=== PATIENT | female | born 1950 | race Caucasian/White ===

== ENCOUNTER 2019-08-11 10:32 | Emergency (ER) | payer MEDICARE, OTHER, SELFPAY ==
[2019-08-11 10:33] VITALS: BP 186/85; PULSE 74; RESP 33; TEMP 37.3; O2SAT 95; BMI 39.3
--- NOTE | 2019-08-11 11:04 | EKG12_ITS ---
Test Reason : CP Blood Pressure : / mmHG Vent. Rate : 069 BPM Atrial Rate : 069 BPM P-R Int : 190 ms QRS Dur : 150 ms QT Int : 436 ms P-R-T Axes : 052 -08 165 degrees QTc Int : 467 ms Normal sinus rhythm Left bundle branch block Abnormal ECG Confirmed by FINA ZAPATA, KORINA ([id number]), editor book TARA DANIELS ([id number]) on 08/16/2019 9:41:28 A M Referred By: WILLY/JAGUAR Confirmed By:DAVID HARDEN MD
[2019-08-11 11:21] LABS: Absolute Neutrophil Count 2.3 X10^3/uL (2.0-7.7); Basophil# 0.02 X10^3/uL; Basophil% 0.5 % (0-1); Eosinophil# 0.17 X10^3/uL; Eosinophils% 4.6 % (0-5); Hematocrit 38.8 % (37-47); Hemoglobin 12.6 g/dL (12.0-15.0); Lymphocyte % 21.5 % (19-41); Mean Corp Hgb Conc 32.5 g/dL (32-36); Mean Corpuscular Hgb 29.6 pg (27.0-32.0); Mean Corpuscular Volume 91.3 fL (81-99); Mean Platelet Vol. 9.6 fl (6.2-12.0); Monocyte# 0.42 X10^3/uL; Monocyte% 11.3 % (0-10); NRBC Flagged by Analyzer 0 % (0-5); Neutrophil # 2.29 X10^3/uL (2.7-7.7); Neutrophil % 61.6 % (47-70); Platelet Count 191 K/mm3 (150-450); RBC Distribution Width CV 14.1 % (11.6-14.6); RBC Distribution Width SD 47.3 fl (35.1-43.9); Red Blood Count 4.25 M/mm3 (4.2-5.4); White Blood Count 3.7 K/mm3 (4.4-11.0)
[2019-08-11 11:30] LABS: International Normalized Ratio 1.8
[2019-08-11 11:35] LABS: Anion Gap 6 (5-15); BUN 16 mg/dL (7-18); BUN/Creat Ratio 11.9 RATIO (10-20); Calcium,Total 9.1 mg/dL (8.5-10.1); Chloride 107 mmol/L (98-107); Creatinine, Serum 1.35 mg/dL (0.55-1.02); EST Glomerular Filtration Rate 42 mL/min (>60); Est Glom Filt Rate - Afr Amer 50 mL/min (>60); Estimated Creatinine Clearance 31.98 ml/min; Glucose 101 mg/dL (74-106); Potassium 4.2 mmol/L (3.5-5.1); Sodium Level 142 mmol/L (136-145)
[2019-08-11] MEDS: Aspirin 81 MG TAB.CHEW 324 MG PO (11:57)
[2019-08-11] MEDS: 0.9% Normal Saline 1,000 ML 150 ML IV (11:59)
[2019-08-11 12:00] VITALS: BP 161/75; PULSE 72; RESP 20; O2SAT 95
[2019-08-11 12:01] VITALS: O2SAT 95
--- NOTE | 2019-08-11 13:01 | NM_ITS ---
CLINICAL: Female, 68 years old. Short of breath NUCLEAR VENTILATION/PERFUSION - LUNG TECHNIQUE: The patient was administered 5.6 mCi of Tc MAA followed by a perfusion lung scan. The patient was administered 1.2 mCi of DTPA followed by a ventilation lung scan. Comparison made to prior chest radiograph dated 08/11/2019. FINDINGS: The pulmonary perfusion study demonstrates uniform perfusion throughout both lung patterson. There are no demonstrated segmental or subsegmental perfusion defects The ventilation study demonstrates uniform ventilation throughout both lung patterson. There are no segmental or subsegmental ventilation abnormalities. NM/Lung Scan Vent/Perf IMPRESSION: Normal 99m Tc MAA pulmonary perfusion and ventilation imaging survey, according to revised PIOPED interpretive criteria. Electronically Signed: Denis Nava, at 15:04 EDT Tel , Service support ,
--- NOTE | 2019-08-11 13:02 | VDLE_ITS ---
Reason For Study: SOB RIGHT LEFT GSV is normal. GSV is normal. CFV is compressible, spontaneous, phasic, CFV is compressible, spontaneous, phasic, competent and demonstrates normal competent, and demonstrates normal augmentation. augmentation. FV is compressible, spontaneous, phasic, FV is compressible, spontaneous, phasic, competent and demonstrates normal competent and demonstrates normal augmentation. augmentation. POP V is compressible, spontaneous, phasic, POP V is compressible, spontaneous, phasic, competent and demonstrates normal competent and demonstrates normal augmentation. augmentation. T/P Trunk is compressible. T/P Trunk is compressible. PTV is compressible. PTV is compressible. RT PerV is compressible. LT PerV is compressible. Procedure Exam performed portable in ED. The exam was diagnostic. A preliminary report was called and/or faxed to PT'S RN & ED. Interpretation Summary No evidence for acute deep venous thrombosis bilateral lower extremities with patent and compressible bilateral great saphenous veins. Ordering Physician: Rigoberto Reyna Referring Physician: April Rincon Performed By: Nicol Ford, DOUGIE, RVT
--- NOTE | 2019-08-11 13:05 | RAD_ITS ---
EXAM DESCRIPTION: PORTABLE AP CHEST CLINICAL HISTORY: 68 years Female, shortness of breath COMPARISON: Previous portable chest obtained on 09/23/2016 FINDINGS: The thorax is intact. The heart and mediastinum appear to be within normal limits. The lungs appear to be well areated without evidence of pneumonic consolidation or pleural effusion. RAD/Chest 1 View (Portable) IMPRESSION: Normal portable chest. Electronically Signed: Denis Nava, at 14:55 EDT Tel , Service support ,
[2019-08-11 13:12] VITALS: BP 158/70; PULSE 70; RESP 14; O2SAT 98
[2019-08-11 14:13] VITALS: BP 148/80; PULSE 75; RESP 14; O2SAT 98
--- NOTE | 2019-08-11 15:31 | ED.DCSUM_ITS ---
- ER Visit Summary Date of Service: 08/11/19 Chief Complaint: Chest pain History of Present Illness: The patient is a [address] Rincon. She reports that she has left lower chest pain that began yesterday afternoon. Is a continuous pain. She reports that it was sharp yesterday and dull today. S tated 10 hours and 4-10 currently. Is worsened by breathing or pushing on it. Is relieved by nothing. She denies any associated nausea, vomiting, diaphoresis, shortness of breath. She reports that she had similar symptoms with a PE in a while. Ago. She is on Coumadin. She reports her last INR was proximally 1 month ago and it was 2.9. Physical Examination: Vitals: Stable. Afebrile. General: Well-nourished and well-developed. Head: Normocephalic atraumatic. Neck: Supple, no lymphadenopathy. No JVD. Nontender. Cardiovascular: Regular rate and rhythm. No murmurs. Respiratory: No respiratory distress. Clear to auscultation bilaterally. No tenderness palpation. There is no rest of her chest to suggest shingles. Abdominal: Soft, nontender, nondistended, normal bowel sounds. No guarding, rebound, or peritoneal signs. Back: Nontender. Extremities: Nontender, no edema. Skin: Normal color, no rash. Neurologic: Alert and oriented ?3. Cranial nerves II through XII are intact. Normal strength and sensation. Psych: Normal affect. Test Results: EKG is sinus at 69 with a left bundle branch block. Unchanged from 2016. Troponin is negative despite greater than 24 hours of constant pain. INR is 1.8. Chem-7 is more for creatinine 1.35. CBC is marked for white count 3.7. Bilateral lower extremity Dopplers negative. Chest x-ray is normal. VQ scan is normal. Emergency Department Course and Treatment: Patient refused a CT of the chest. She also refused pain medications. She is resting comfortably. Treatment Plan: Patient will be discharged instructions follow-up with his primary care physician 1 to 2 days if not improving. I did discuss with her the possibility that this may be shingles prior to the onset of the rash. Return to the emergency department for any worsening symptoms. Disposition: To home in improved and stable condition. Impression: 1. Atypical chest pain. This note was generated with Dragon dictation software. It may contain incorrect words, spelling, and punctuation that were not noted in review of the chart prior to signing ED Disposition - Plan for ED Patient: Disposition: Home or Assisted Living Instructions: CHEST PAIN, Uncertain Cause Referrals: April Rincon MD [Primary Care Provider] - 2 Days
[2019-08-11 15:39] VITALS: BP 150/75; PULSE 70; RESP 14; O2SAT 98
== END 2019-08-11 15:41 | disposition home or self-care (01) ==
LOC: ED 12:10
PROVIDERS: Emergency Provider Emergency Medicine; Family Provider Internal Medicine; PCP Internal Medicine
DX: R07.89 Other chest pain (principal); I44.7 Left bundle-branch block, unspecified; I10 Essential (primary) hypertension; E78.00 Pure hypercholesterolemia, unspecified; L40.9 Psoriasis, unspecified; Z85.42 Personal history of malignant neoplasm of other parts of uterus; Z92.21 Personal history of antineoplastic chemotherapy; Z92.3 Personal history of irradiation; Z86.711 Personal history of pulmonary embolism; Z79.01 Long term (current) use of anticoagulants; Z79.82 Long term (current) use of aspirin; Z79.899 Other long term (current) drug therapy
CPT/HCPCS: 71045; 78582; 80048; 84484; 85025; 85379; 85610; 93005; 93970; 96360; 96361; 99285; A9540; A9567; J7030; A4216

== ENCOUNTER → 2020-09-09 | Outpatient (CLI) | payer MEDICARE, OTHER, SELFPAY ==
[2020-09-09 15:49] LABS: International Normalized Ratio 1.8; Prothrombin Time (Protime)PT. 20.2 SECONDS (11.7-14.9)
== END | disposition home or self-care (01) ==
LOC: LABSPEC 15:10
PROVIDERS: PCP Internal Medicine; Referring Provider Internal Medicine Hematology & Oncology; Visit Provider Internal Medicine Hematology & Oncology
DX: Z86.718 Personal history of other venous thrombosis and embolism (principal)
CPT/HCPCS: 85610

== ENCOUNTER → 2022-05-27 | Outpatient (CLI) | payer MEDICARE, OTHER, SELFPAY ==
[2022-05-27 12:30] LABS: International Normalized Ratio 2.3; Prothrombin Time (Protime)PT. 25.3 SECONDS (11.7-14.9)
== END | disposition home or self-care (01) ==
LOC: LABSPEC 12:04
PROVIDERS: PCP Internal Medicine; Visit Provider Internal Medicine Hematology & Oncology
DX: I82.5Y9 Chronic embolism and thrombosis of unspecified deep veins of unspecified proximal lower extremity (principal)
CPT/HCPCS: 85610

== ENCOUNTER 2023-07-19 12:26 | Emergency (ER) | payer MEDICARE, OTHER, SELFPAY ==
[2023-07-19 12:27] VITALS: BP 171/86; PULSE 61; RESP 18; TEMP 36.1; O2SAT 97; BMI 37.4
--- NOTE | 2023-07-19 12:38 | VDLE_ITS ---
Reason For Study: Right leg pain RIGHT GSV is normal. CFV is compressible, spontaneous, phasic, competent and demonstrates normal augmentation. FV is compressible, spontaneous, phasic, competent and demonstrates normal augmentation. POP V is compressible, spontaneous, phasic, competent and demonstrates normal augmentation. T/P Trunk is compressible. PTV is compressible. RT PerV is compressible. Vascularized lymph node noted in the right groin that measures 0.95 x 3.20 cm. Procedure This is a venous duplex using B-mode, color flow and spectral Doppler. Exam performed portable in ED. A preliminary report was called and/or faxed to Jenni BRIDGES and Dr. Benjamin. VL/Venous Duplex US, Unilateral Interpretation Summary Deep veins of the right lower extremity are patent and compressible segmentally . There is no evidence of right lower extremity deep vein thrombosis. The right great sapheno us vein appears patent and compressible segmentally. Vascularized right inguinal lymph node noted that measures 0.95 x 3.20 cm. Ordering Physician: Lilian Saab Referring Physician: April Rincon M.D. Performed By: Rama Delarosa RVT
--- NOTE | 2023-07-19 12:48 | EDS_ITS ---
HPI History of Present Illness Chief Complaint: General Illness PFSH PFS Home Medications betamethasone dipropionate 0.05 % topical cream 15 g TP BID 09/23/16 [History Last Taken Unknown] famotidine 40 mg tablet (Pepcid) 40 mg PO DAILY 09/23/16 [History Last Taken Unknown] nystatin 100,000 unit/gram topical ointment 1 applic topical BID 09/23/16 [History Last Taken Unknown] valsartan 80 mg-hydrochlorothiazide 12.5 mg tablet (Diovan HCT) 2 tab PO DAILY 09/23/16 [History Last Taken Unknown] verapamil 120 mg 24 hr capsule,extended release 60 mg PO DAILY 09/23/16 [History Last Taken Unknown] warfarin 4 mg tablet (Jantoven) 4 mg PO DAILY 09/23/16 [History Last Taken U nknown] aspirin 81 mg chewable tablet 81 mg PO DAILY@0800 10/13/17 [History Last Taken Unknown] atorvastatin 80 mg tablet 80 mg PO 10/13/17 [History Last Taken Unknown] cephalexin 500 mg capsule 500 mg PO TID ##21 10/13/17 [Rx Last Taken Unknown] cyclobenzaprine 10 mg tablet 10 mg PO TID PRN Muscle Spasm ##20 10/13/17 [Rx Last Taken Unknown] hydrocodone-acetaminophen 5-325mg 5mg-325mg 1 - 2 tab PO Q4H PRN PRN Pain ##20 10/13/17 [Rx Last Taken Unknown] metoprolol tartrate 25 mg tablet 25 mg PO BID 10/13/17 [History Last Taken Unknown] phenazopyridine 200 mg tablet (Pyridium) 200 mg PO BID PRN PRN Pain #10 tabs 10/13/17 [Rx Last Taken Unknown] Allergy/AdvReac Type Severity Reaction Status Date / Time acetaminophen [From Midrin] Allergy Hives Verified 07/19/23 12:29 amoxicillin Allergy Rash Verified 07/19/23 12:29 dichloralphenazone Allergy Hives Verified 07/19/23 12:29 [From Midrin] isometheptene [From Midrin] Allergy Hives Verified 07/19/23 12:29 Penicillins Allergy Rash Verified 07/19/23 12:29 Sulfa (Sulfonamide Allergy Unknown Verified 07/19/23 12:29 Antibiotics) Social History Smoking Status: Never smoker EXAM Physical Exam Const Vital Signs: 07/19/23 12:27 Temperature 96.9 F L Temperature Source Temporal Pulse Rate 61 Respiratory Rate 18 Blood Pressure 171/86 H Blood Pressure Mean 114 Pulse Ox 97 Oxygen Delivery Method Room Air Discharge Plan Triage Chief Complaint: General Illness ED Midlevel Provider: Lilian Saab ED Provider: Joey Benjamin Dx/Rx/DC Orders Prescriptions: No Action nystatin 1 APPLIC ointment 1 applic topical BID famotidine [Pepcid] 40 MG tablet 40 mg PO DAILY warfarin [Jantoven] 4 MG tablet 4 mg PO DAILY Patient Comments: TTSS valsartan-hydrochlorothiazide [Diovan HCT] 1 TABLET tablet 2 tab PO DAILY betamethasone dipropionate 15 GM cream 15 g TP BID verapamil 120 MG capsule,ext rel. pellets 24 hr 60 mg PO DAILY atorvastatin 80 MG tablet 80 mg PO aspirin 81 MG tablet,chewable 81 mg PO DAILY@0800 metoprolol tartrate 25 MG tablet 25 mg PO BID cyclobenzaprine 10 MG tablet 10 mg PO TID PRN (Reason: Muscle Spasm) Qty: 20 0RF hydrocodone-acetaminophen 1 TABLET tablet 1 - 2 tab PO Q4H PRN PRN (Reason: Pain) Qty: 20 0RF phenazopyridine [Pyridium] 200 MG tablet 200 mg PO BID PRN PRN (Reason: Pain) Qty: 10 0RF cephalexin 500 MG capsule 500 mg PO TID Qty: 21 0RF Primary Care Provider: April Rincon Referrals: April Rincon MD [Primary Care Provider] -
--- NOTE | 2023-07-19 12:48 | EDS_ITS ---
HPI <ELLY Vyas - Last Filed: 07/19/23 14:02> History of Present Illness Chief Complaint: General Illness Narrative Narrative: Patient presenting today with swelling and faint erythema to her right lower extremity that she has had since Wednesday. She reports concerns that she could either have cellulitis to her leg or a DVT. She does have a history of blood clots and is on Coumadin. She last had her INR level checked today and it was 1.8. She denies any injury or pain to her leg, chest pain, shortness of breath, fever, and chills. PFSH <ELLY Vyas - Last Filed: 07/19/23 14:02> PFSH Home Medications betamethasone dipropionate 0.05 % topical cream 15 g TP BID 09/23/16 [History Last Taken Unknown] famotidine 40 mg tablet (Pepcid) 40 mg PO DAILY 09/23/16 [History Last Taken Unknown] nystatin 100,000 unit/gram topical ointment 1 applic topical BID 09/23/16 [History Last Taken Unknown] valsartan 80 mg-hydrochlorothiazide 12.5 mg tablet (Diovan HCT) 2 tab PO DAILY 09/23/16 [History Last Taken Unknown] verapamil 120 mg 24 hr capsule,extended release 60 mg PO DAILY 09/23/16 [History Last Taken Unknown] warfarin 4 mg tablet (Jantoven) 4 mg PO DAILY 09/23/16 [History Last Taken Unknown] aspirin 81 mg chewable tablet 81 mg PO DAILY@0800 10/13/17 [History Last Taken Unknown] atorvastatin 80 mg tablet 80 mg PO 10/13/17 [History Last Taken Unknown] cephalexin 500 mg capsule 500 mg PO TID ##21 10/13/17 [Rx Last Taken Unknown] cyclobenzaprine 10 mg tablet 10 mg PO TID PRN Muscle Spasm ##20 10/13/17 [Rx Last Taken Unknown] hydrocodone-acetaminophen 5-325mg 5mg-325mg 1 - 2 tab PO Q4H PRN PRN Pain ##20 10/13/17 [Rx Last Taken Unknown] metoprolol tartrate 25 mg tablet 25 mg PO BID 10/13/17 [History Last Taken Un known] phenazopyridine 200 mg tablet (Pyridium) 200 mg PO BID PRN PRN Pain #10 tabs 10/13/17 [Rx Last Taken Unknown] cephalexin 500 mg capsule 500 mg PO Q6 #40 CAPSULES 07/19/23 [Rx Last Taken Unknown] Allergy/AdvReac Type Severity Reaction Status Date / Time acetaminophen [From Midrin] Allergy Hives Verified 07/19/23 12:29 amoxicillin Allergy Rash Verified 07/19/23 12:29 dichloralphenazone Allergy Hives Verified 07/19/23 12:29 [From Midrin] isometheptene [From Midrin] Allergy Hives Verified 07/19/23 12:29 Penicillins Allergy Rash Verified 07/19/23 12:29 Sulfa (Sulfonamide Allergy Unknown Verified 07/19/23 12:29 Antibiotics) Social History Smoking Status: Never smoker ROS <ELLY Vyas - Last Filed: 07/19/23 14:02> ROS ED Constitutional Constitutional ED: Denies chills or fever(s) Cardiovascular Cardiovascular: Denies chest pain or palpitations Respiratory/Chest Respiratory/Chest: Denies cough or dyspnea Gastrointestinal Gastrointestinal: Denies abdominal pain, nausea or vomiting Musculoskeletal Musculoskeletal: Denies arthralgias or myalgias Integumentary Denies Abrasions or rash Neurologic Neurologic: Denies paresthesias or weakness EXAM <ELLY Vyas - Last Filed: 07/19/23 14:02> Physical Exam Const Vital Signs: 07/19/23 12:27 Temperature 96.9 F L Temperature Source Temporal Pulse Rate 61 Respiratory Rate 18 Blood Pressure 171/86 H Blood Pressure Mean 114 Pulse Ox 97 Oxygen Delivery Method Room Air Positive well nourished, well developed and no apparent distress General Appearance ED: well developed HEENT Reports normocephalic and head/scalp atraumatic Mouth ED: Yes moist mucous membranes normal Eyes PERRL and EOMs intact bilaterally Neck full ROM and supple Chest Wall inspection of chest normal Resp normal respiratory effort and clear to auscultation bilaterally Cardio regular rate and regular rhythm GI soft to palpation, non-tender, non-distended and no masses Back/Spine normal ROM and normal to inspection Extremity normal to inspection and full ROM Extremity Narrative: 2+ pitting edema to the right lower extremity, faint erythema to the ventral as pect of the right lower extremity below the knee. No pain to palpation to the leg, no wounds. DP pulses 2+ and equal bilaterally, good capillary refill, sensation intact. Neuro oriented x3, CN's II-XII intact bilaterally, moves all extremities, no focal motor deficits and no sensory deficits noted Sensorium / Orientation: awake and alert Psych mental status grossly normal and thought process normal Skin no rashes or lesions noted and no wounds <Dr. Joey Benjamin DO - Last Filed: 07/19/23 15:50> Physical Exam Const Vital Signs: 07/19/23 12:27 Temperature 96.9 F L Temperature Source Temporal Pulse Rate 61 Respiratory Rate 18 Blood Pressure 171/86 H Blood Pressure Mean 114 Pulse Ox 97 Oxygen Delivery Method Room Air MDM <ELLY Vyas - Last Filed: 07/19/23 14:02> [facility] Narrative Medical decision making narrative: Patient presenting with concerns that she has either a DVT or cellulitis to right lower extremity. She does have a history of blood clots and is on C oumadin. INR level was last checked this morning and was 1.8. She is well- appearing and in no acute distress, vitals noted. Duplex ultrasound obtained and is negative. Cellulitis cannot be ruled out, she will be started on Keflex. She is also was encouraged to start elevating her feet, using compression stockings, and to follow-up with her PCP in the next 3 to 5 days. She will be discharged home in stable condition and is comfortable with plan. I have personally performed a face to face assessment of the patient and have reviewed the TERI Note. I performed a substantive portion of the visit including all aspects of the following. My brown findings include: History is [patient presents with swelling in her right leg that started 4 days ago. She denies injury. She has history of DVT and PE. She denies chest pain or shortness of breath. She is on Coumadin and states she had an INR that was done today was 1.8. Prior to today her last INR was about 2 weeks ago and was similar. Patient also concerned about possibility of cellulitis. Fevers or chills or sweats.] Exam is [HEENT-PERRLA, EOMI. Cranial nerves II through XII grossly intact. TMs clear. Mucous membranes moist. No adenopathy. Cardiovascular-regular rate and rhythm without murmur or ectopy Lungs-clear to auscultation, chest wall stable without crepitus or subcu emphysema Abdomen-normoactive bowel sounds, soft, nontender, no rebound or rigidity, no peritoneal signs. Extremities-intact ?4, normal range of motion, normal pulses, atraumatic] patient does have some faint erythema and +2 edema to the right leg. Medical Decison Making [patient with increased swelling to right leg with history of DVT and PE on Coumadin. We will obtain a venous Doppler to rule out DVT.] In the differential would be venous stasis versus DVT versus lymphedema. Venous Doppler was negative for DVT. There is some subtle erythema to the right leg compared to the left and maybe some increased warmth. Cannot rule out cell ulitis. We will start patient on Keflex. Advised on compression stockings and follow-up with primary care physician within next 3 to 5 days. Other additions or changes: [None] <Dr. Joey Benjamin, DO - Last Filed: 07/19/23 15:50> [facility] MDM Narrative Medical decision making narrative: I have personally performed a face to face assessment of the patient and have reviewed the TREI Note. I performed a substantive portion of the visit including all aspects of the following. My brown findings include: History is [patient presents with swelling in her right leg that started 4 days ago. She denies injury. She has history of DVT and PE. She denies chest pain or shortness of breath. She is on Coumadin and states she had an INR that was done today was 1.8. Prior to today her last INR was about 2 weeks ago and was similar. Patient also concerned about possibility of cellulitis. Fevers or chills or sweats.] Exam is [HEENT-PERRLA, EOMI. Cranial nerves II through XII grossly intact. TMs clear. Mucous membranes moist. No adenopathy. Cardiovascular-regular rate and rhythm without murmur or ectopy Lungs-clear to auscultation, chest wall stable without crepitus or subcu emphysema Abdomen-normoactive bowel sounds, soft, nontender, no rebound or rigidity, no peritoneal signs. Extremities-intact ?4, normal range of motion, normal pulses, atraumatic] patient does have some faint erythema and +2 edema to the right leg. Medical Decison Making [patient with increased swelling to right leg with history of DVT and PE on Coumadin. We will obtain a venous Doppler to rule out DVT.] In the differential would be venous stasis versus DVT versus lymphedema. Venous Doppler was negative for DVT. There is some subtle erythema to the right leg compared to the left and maybe some increased warmth. Cannot rule out cellulitis. We will start patient on Keflex. Advised on compression stockings and follow-up with primary care physician within next 3 to 5 days. Other additions or changes: [None] Discharge Plan Triage Chief Complaint: General Illness ED Midlevel Provider: Lilian Saab ED Provider: Joey Benjamin Dx/Rx/DC Orders Clinical Impression: Cellulitis of right leg, Right leg swelling Instructions: ED Cellulitis, ED Peripheral Edema, Unilateral Prescriptions: New cephalexin [cephalexin] 500 mg capsule 500 mg PO Q6 Qty: 40 0RF No Action nystatin 1 APPLIC ointment 1 applic topical BID famotidine [Pepcid] 40 MG tablet 40 mg PO DAILY warfarin [Jantoven] 4 MG tablet 4 mg PO DAILY Patient Comments: TTSS valsartan-hydrochlorothiazide [Diovan HCT] 1 TABLET tablet 2 tab PO DAILY betamethasone dipropionate 15 GM cream 15 g TP BID verapamil 120 MG capsule,ext rel. pellets 24 hr 60 mg PO DAILY atorvastatin 80 MG tablet 80 mg PO aspirin 81 MG tablet,chewable 81 mg PO DAILY@0800 metoprolol tartrate 25 MG tablet 25 mg PO BID cyclobenzaprine 10 MG tablet 10 mg PO TID PRN (Reason: Muscle Spasm) Qty: 20 0RF hydrocodone-acetaminophen 1 TABLET tablet 1 - 2 tab PO Q4H PRN PRN (Reason: Pain) Qty: 20 0RF phenazopyridine [Pyridium] 200 MG tablet 200 mg PO BID PRN PRN (Reason: Pain) Qty: 10 0RF cephalexin 500 MG capsule 500 mg PO TID Qty: 21 0RF Primary Care Provider: April Rincon Referrals: April Rincon MD [Primary Care Provider] - Disposition Disposition: Home, Self Care Discharge Date/Time: 07/19/23 13:46
== END 2023-07-19 13:46 | disposition home or self-care (01) ==
LOC: ED 13:10
PROVIDERS: Emergency Provider Emergency Medicine; PCP Internal Medicine; Visit Provider Emergency Medicine
DX: L03.115 Cellulitis of right lower limb (principal); R60.0 Localized edema; Z79.01 Long term (current) use of anticoagulants; Z79.82 Long term (current) use of aspirin; Z79.899 Other long term (current) drug therapy; Z86.718 Personal history of other venous thrombosis and embolism
CPT/HCPCS: 93971; 99282